=== PATIENT | male | born 1955 | race Caucasian/White ===

== ENCOUNTER 2018-06-19 18:10 | Inpatient (IN) | payer OTHER, MEDICARE ==
[2018-06-19] MEDS ORDERED: LIDOCAINE 1% INJ-PF (10 MG/ML) 30 ML SDV INJ ONE (18:33)
--- NOTE | 2018-06-19 18:33 | ER Document Report ---
ED Medical Screen (RME) - General Chief Complaint: Abscess Stated Complaint: POSSIBLE ABSCESS Time Seen by Provider: 06/19/18 18:29 Mode of Arrival: Ambulatory Information source: Patient Notes: 62-year-old male with type 2 diabetes, hypertension presents with complaint of right buttocks pain for 2 weeks. Patient was seen by his primary care physician who told him that the area needed to be drained. Patient has previous history of multiple abscesses. Denies any history of MRSA. I have greeted and performed a rapid initial assessment of this patient. A comprehensive ED assessment and evaluation of the patient, analysis of test results and completion of medical decision making process we will be contacted by additional ED providers. PHYSICAL EXAMINATION: GENERAL: Well-appearing, well-nourished and in no acute distress. HEAD: Atraumatic, normocephalic. EYES: Pupils equal round extraocular movements intact, conjunctiva are normal. LUNGS: No respiratory distress Musculoskeletal: Normal range of motion NEUROLOGICAL: Normal speech, normal gait. PSYCH: Normal mood, normal affect. TRAVEL OUTSIDE OF THE [place] IN LAST 30 DAYS: No - HPI Onset: Other Onset/Duration: Gradual, Persistent, Worse Quality of pain: Throbbing Severity: Moderate Associated Symptoms: Chills Exacerbated by: Movement Relieved by: Denies Similar symptoms previously: Yes Recently seen / treated by doctor: Yes - Related Data Smoking: Non-smoker Frequency of alcohol use: None Drug Abuse: None Allergies/Adverse Reactions: No Known Allergies Allergy (Unverified 06/19/18 18:12)
[2018-06-19] MEDS ORDERED: ONDANSETRON HCL INJ/PF 4 MG/2 ML SDV IV ONE (20:15)
[2018-06-19] MEDS ORDERED: HYDROMORPHONE HCL INJ/PF 2 MG/ML AMPULE IV ONE ×2 (20:15→21:53)
--- NOTE | 2018-06-19 20:19 | ER Document Report ---
ED Skin Rash/Insect Bite/Abscs <TERRELL,MANDA - Last Filed: 06/20/18 00:42> - General Mode of Arrival: Ambulatory Information source: Patient TRAVEL OUTSIDE OF THE [place] IN LAST 30 DAYS: No <MARY GOLDEN - Last Filed: 06/21/18 22:01> - General Chief Complaint: Abscess Stated Complaint: POSSIBLE ABSCESS Time Seen by Provider: 06/19/18 18:29 Notes: Last meal was about 5 PM, he ate half of a sub-sandwich. (TERRELLMANDA) Patient is a 62-year-old male with type 2 diabetes, hypertension, COPD, high cholesterol, CHF, pacemaker defibrillator and a history of MN (x3, 1 stent) and a recurrent abscesses presents to the emergency department complaining of an abscess on his right buttocks onset 2 weeks ago. Patient states that he went to [facility] 3 days ago and received a 10 day course of Clindamycin. Patient states that his PCP told him that he needed to have the abscess drained. Patient states he feels the Clindamycin has not helped his symptoms at all. Patient denies any fevers. (MARY GOLDEN) - Related Data Allergies/Adverse Reactions: No Known Allergies Allergy (Unverified 06/19/18 18:12) Past Medical History - General Information source: Patient - Social History Smoking Status: Current Every Day Smoker Frequency of alcohol use: None Drug Abuse: None Family History: Reviewed & Not Pertinent Patient has suicidal ideation: No Patient has homicidal ideation: No - Past Medical History Cardiac Medical History: Reports: Hx Congestive Heart Failure, Hx Heart Attack, Hx Hypercholesterolemia, Hx Hypertension Pulmonary Medical History: Reports: Hx COPD Endocrine Medical History: Reports: Hx Diabetes Mellitus Type 2 Past Surgical History: Reports: Hx Cardiac Catheterization, Hx Cardiac Surgery - pacemaker defibrillator <MARY GOLDEN - Last Filed: 06/21/18 22:01> Review of Systems - Review of Systems Constitutional: No symptoms reported EENT: No symptoms reported Cardiovascular: No symptoms reported Respiratory: No symptoms reported Gastrointestinal: No symptoms reported Genitourinary: No symptoms reported Male Genitourinary: No symptoms reported Musculoskeletal: See HPI Skin: See HPI Hematologic/Lymphatic: No symptoms reported Neurological/Psychological: No symptoms reported -: Yes All other systems reviewed and negative <MARY GOLDEN - Last Filed: 06/21/18 22:01> Physical Exam <MANDA TEJADA - Last Filed: 06/20/18 00:42> <MARY GOLDEN - Last Filed: 06/21/18 22:01> - Vital signs Vitals: Temp Pulse Resp BP Pulse Ox 98.7 F 103 H 20 136/102 H 94 06/19/18 18:16 06/19/18 18:16 06/19/18 18:16 06/19/18 18:16 06/19/18 18:16 - Notes Notes: GENERAL: Alert, interacts well. No acute distress. HEAD: Normocephalic, atraumatic. EYES: Pupils equal, round, and reactive to light. Extraocular movements intact. ENT: Oral mucosa moist, tongue midline. NECK: Full range of motion. Supple. Trachea midline. LUNGS: Coarse breath sounds, wheezing. No respiratory distress. HEART: Regular rate and rhythm. No murmurs, gallops, or rubs. ABDOMEN: Soft, obese, non-tender. Non-distended. Bowel sounds present in all 4 quadrants. EXTREMITIES: Moves all 4 extremities spontaneously. Edema in BLE, radial and dorsalis pedis pulses 2/4 bilaterally. No cyanosis. NEUROLOGICAL: Alert and oriented x3. Normal speech. PSYCH: Normal affect, normal mood. SKIN: Warm, dry, normal turgor. No rashes or lesions noted. GI/: Right buttocks contains a large area of erythema that is linear in shape which precedes to the perineum across the perineal body up to the base of scrotum, bulging, tender to palpation, no fluctuance. (MARY GOLDEN) Course - Laboratory Result Diagrams: 06/19/18 20:34 06/19/18 23:46 - Diagnostic Test Radiology reviewed: Reports reviewed - Chest x-ray shows mild atelectasis in the right base, pacemaker, nothing acute. Ultrasound showed inflammation, cellulitis, swelling, probable fluid collection. - EKG Interpretation by Dc EKG shows normal: Sinus rhythm, [place], Intervals, ST-T Waves. abnormal: QRS Complexes - Old inferior infarct and old lateral infarct Rate: Normal - 85 Rhythm: NSR [place]/QRS: RBBB - Atypical right bundle branch block, IVCD When compared to previous EKG there are: Previous EKG unavailable - Consults Dr. Vicente Time consulted: 23:00 Consulted provider: will come to ER <MANDA TEJADA - Last Filed: 06/20/18 00:42> - Laboratory Result Diagrams: 06/21/18 04:10 06/21/18 04:10 <MARY GOLDEN - Last Filed: 06/21/18 22:01> - Vital Signs Vital signs: Temp Pulse Resp BP Pulse Ox 98.9 F 83 18 125/65 97 06/21/18 20:28 06/21/18 20:28 06/21/18 20:28 06/21/18 20:28 06/21/18 20:28 - Laboratory Laboratory results interpreted by me: 06/19/18 06/19/18 06/19/18 20:34 20:34 23:30 WBC 19.5 H RBC 3.89 L Hgb 10.7 L Hct 32.8 L Seg Neuts % (Manual) 87 H Lymphocytes % (Manual) 8 L Abs Neuts (Manual) 17.0 H Sodium 135.0 L Potassium 5.7 H BUN 51 H Creatinine 1.92 H Est GFR ( Amer) 43 L Est GFR (Non-Af Amer) 36 L Glucose 313 H POC Glucose Direct Bilirubin 0.5 H Albumin 3.0 L Urine Protein 100 H Urine Urobilinogen 2.0 H Urine Ascorbic Acid 20 H 06/19/18 06/20/18 23:46 00:15 WBC RBC Hgb Hct Seg Neuts % (Manual) Lymphocytes % (Manual) Abs Neuts (Manual) Sodium Potassium 5.5 H BUN 51 H Creatinine 1.92 H Est GFR ( Amer) 43 L Est GFR (Non-Af Amer) 36 L Glucose 282 H POC Glucose 285 H Direct Bilirubin Albumin Urine Protein Urine Urobilinogen Urine Ascorbic Acid Critical Care Note - Critical Care Note Total time excluding time spent on procedures (mins): 45 <MANDA TEJADA - Last Filed: 06/20/18 00:42> Discharge - Discharge Admitting Provider: Surgicalist Unit Admitted: Telemetry <MANDA TEJADA - Last Filed: 06/20/18 00:42> <MARY GOLDEN - Last Filed: 06/21/18 22:01> - Discharge Clinical Impression: Perineal abscess, Dehydration, Hyperkalemia Leukocytosis Qualifiers: Leukocytosis type: unspecified Qualified Code(s): D72.829 - Elevated white blood cell count, unspecified Hyperglycemia due to type 2 diabetes mellitus Qualifiers: Diabetes mellitus group home insulin use: with exterminator helper use Qualified Code(s): E11.65 - Type 2 diabetes mellitus with hyperglycemia Condition: Stable Disposition: ADMITTED INPATIENT Scribe Attestation: 06/19/18 22:19 I personally performed the services described in the documentation, reviewed and edited the documentation which was dictated to the scribe in my presence, and it accurately records my words and actions. (MANDA TEJADA) Scribe Documentation - Scribe Written by Scribe:: Mary Golden, 06/19/2018, 20:28. acting as scribe for :: Terrell <MARY OGLDEN - Last Filed: 06/21/18 22:01>
[2018-06-19 20:47] LABS: HEMATOCRIT 32.8 % (37.9-51.0); HEMOGLOBIN 10.7 g/dL (13.5-17.0); MEAN CORPUSCULAR HEMOGLOBIN 27.6 pg (27.0-33.4); MEAN CORPUSCULAR HGB CONC 32.7 g/dL (32.0-36.0); MEAN CORPUSCULAR VOLUME 84 fl (80-97); PLATELET COUNT 267 10^3/uL (150-450); RED BLOOD COUNT 3.89 10^6/uL (4.35-5.55); RED CELL DISTRIBUTION WIDTH 13.5 % (11.5-14.0); WHITE BLOOD COUNT 19.5 10^3/uL (4.0-10.5)
[2018-06-19 21:14] LABS: ABSOLUTE LYMPHOCYTES# (MANUAL) 1.6 10^3/uL (0.5-4.7); ABSOLUTE MONOCYTES # (MANUAL) 0.8 10^3/uL (0.1-1.4); BASOPHILS % (MANUAL) 0 % (0-2); EOSINOPHILS % (MANUAL) 1 % (0-6); LYMPHOCYTES % (MANUAL) 8 % (13-45); MONOCYTES % (MANUAL) 4 % (3-13); SEGMENTED NEUTROPHILS % (MAN) 87 % (42-78); TOTAL CELLS COUNTED 100
[2018-06-19 21:15] LABS: PLATELET COMMENT ADEQUATE; RBC MORPHOLOGY COMMENT NORMO-CYTIC/CHROMIC
[2018-06-19 21:17] LABS: ALANINE AMINOTRANSFERASE 21 U/L (21-72); ALKALINE PHOSPHATASE 84 U/L (38-126); ANION GAP 10 (5-19); ASPARTATE AMINO TRANSFERASE 22 U/L (17-59); BILIRUBIN,DIRECT 0.5 mg/dL (0.0-0.4); BILIRUBIN,TOTAL 0.5 mg/dL (0.2-1.3); BLOOD UREA NITROGEN 51 mg/dL (7-20); CALCIUM 8.7 mg/dL (8.4-10.2); CARBON DIOXIDE 25 mmol/L (22-30); CHLORIDE 100 mmol/L (98-107); GLUCOSE 313 mg/dL (75-110); POTASSIUM 5.7 mmol/L (3.6-5.0); TOTAL PROTEIN 6.6 g/dL (6.3-8.2)
[2018-06-19] MEDS ORDERED: VANCOMYCIN HCL INJ 1000 MG VIAL IV ONE (21:45)
--- NOTE | 2018-06-19 22:02 | RADIOLOGY REPORT (SQ) ---
US EXTREMITY MUSCULOSKELETAL LIMITED HISTORY: Evaluate for fluid collection in the right buttock. Pain. COMPARISON: None. TECHNIQUE: Kohler-scale and color Doppler images of the right buttock region were obtained. FINDINGS: Diffuse edema of the overlying right buttock region. There is suggestion of a complex fluid collection with mobile internal debris in this region. IMPRESSION: Diffuse edema of the right buttock region. Possible fluid collection with internal debris. Cross-sectional imaging is recommended to exclude abscess.
[2018-06-19] MEDS ORDERED: NORMAL SALINE 1000 ML 1,000 ML IV ONE (23:05)
[2018-06-19] MEDS ORDERED: INSULIN REG, HUMAN 100 UNIT/ML 3 ML VIAL (PYX) IV ONE (23:05)
--- NOTE | 2018-06-19 23:32 | RADIOLOGY REPORT (SQ) ---
XR CHEST 1 VIEW HISTORY: Preoperative. Chest pain. COMPARISON: None. FINDINGS/IMPRESSION: Left chest wall pacemaker in situ. Normal cardiomediastinal silhouette. Pulmonary vasculature is unremarkable. Mild atelectasis at the left lung base. No pleural effusion or pneumothorax is seen. No acute osseous findings.
--- NOTE | 2018-06-19 23:39 | PDOC H&P ---
History of Present Illness Admission Date/PCP: 06/19/18 Patient complains of: right gluteal pain History of Present Illness: MER ONEIL is a 62 year old male with IDDM, and multiple medical problems including COPD, CHF, pacemaker whio be a large area of induration and rednes with pain of the lateral aspect of the rigth gluteus x 2 weeks whixh a=has been getting more symptomatic. His WBC is 19K and an US of the right gluteus indicates a probable abscess. Past Medical History Cardiac Medical History: Reports: Congestive Heart Failure, Myocardial Infarction, Hyperlipidema, Hypertension Pulmonary Medical History: Reports: Chronic Obstructive Pulmonary Disease (COPD) Endocrine Medical History: Reports: Diabetes Mellitus Type 2 Past Surgical History Past Surgical History: Reports: Cardiac Catheterization Social History Smoking Status: Current Every Day Smoker Family History Parental Family History Reviewed: No Children Family History Reviewed: No Sibling(s) Family History Reviewed.: No Medication/Allergy Allergies/Adverse Reactions: No Known Allergies Allergy (Unverified 06/19/18 18:12) Physical Exam Vital Signs: Intake & Output 06/18/18 06/19/18 06/20/18 06:59 06:59 06:59 Weight 95.2 kg General appearance: PRESENT: no acute distress Eye exam: PRESENT: EOMI Mouth exam: PRESENT: neck supple Neck exam: PRESENT: full ROM Respiratory exam: PRESENT: clear to auscultation leslie Cardiovascular exam: PRESENT: RRR GI/Abdominal exam: PRESENT: soft Rectal exam: PRESENT: deferred Gentrourinary exam: PRESENT: other - large 15 cm area of indurations and redness of ther right lateral gluteus as per flud collection Extremities exam: PRESENT: full ROM Musculoskeletal exam: PRESENT: full ROM Results Laboratory Results: 06/19/18 20:34 06/19/18 20:34 06/19/18 06/19/18 20:34 20:34 WBC 19.5 H RBC 3.89 L Hgb 10.7 L Hct 32.8 L MCV 84 MCH 27.6 MCHC 32.7 RDW 13.5 Plt Count 267 Seg Neutrophils % Not Reportable Lymphocytes % Not Reportable Monocytes % Not Reportable Eosinophils % Not Reportable Basophils % Not Reportable Absolute Neutrophils Not Reportable Absolute Lymphocytes Not Reportable Absolute Monocytes Not Reportable Absolute Eosinophils Not Reportable Absolute Basophils Not Reportable Sodium 135.0 L Potassium 5.7 H Chloride 100 Carbon Dioxide 25 Anion Gap 10 BUN 51 H Creatinine 1.92 H Est GFR ( Amer) 43 L Est GFR (Non-Af Amer) 36 L Glucose 313 H Calcium 8.7 Total Bilirubin 0.5 AST 22 ALT 21 Alkaline Phosphatase 84 Total Protein 6.6 Albumin 3.0 L Impressions: Extremity Ultrasound 06/19/18 20:19 IMPRESSION: Diffuse edema of the right buttock region. Possible fluid collection with internal debris. Cross-sectional imaging is recommended to exclude abscess. Assessment & Plan - Diagnosis (1) Abscess, gluteal, right Is this a current diagnosis for this admission?: Yes - Plan Summary Plan Summary: A/ Right gluteal abscess x 2 weeks Acute Kidney failure (BUN/Creatinine 51/1.9) Leukocytosis (19K) Hyperkalemia 5.7 Hyperglycemia P/ Obtain CT scan pelvis to r/o additional abscess sites Consent for right gluteal abscess I&D in AM NPO IVF Antibiotics Zosyn Medicine on consult D/W Anesthesia: K should be < 5.1 for safe surgery I will consult Hospitalist for glucose, fluids, and K management
[2018-06-19 23:44] LABS: APPEARANCE,URINE SLIGHTLY-CLOUDY; BILIRUBIN,URINE NEGATIVE (NEGATIVE); COLOR,URINE YELLOW; GLUCOSE, URINE NEGATIVE (NEGATIVE); KETONES,URINE NEGATIVE (NEGATIVE); LEUKOCYTE ESTERASE,URINE NEGATIVE (NEGATIVE); NITRITE,URINE NEGATIVE (NEGATIVE); PROTEIN,URINE 100 mg/dL (NEGATIVE); URINE SPECIFIC GRAVITY 1.017
[2018-06-19] MEDS ORDERED: ONDANSETRON HCL INJ/PF 4 MG/2 ML SDV IV PRN (23:45)
[2018-06-20] MEDS ORDERED: NORMAL SALINE 1000 ML 1,000 ML IV ONE (00:02)
[2018-06-20] MEDS ORDERED: FAMOTIDINE INJ/PF 20 MG/2 ML SDV IV ONE (00:05)
[2018-06-20] MEDS ORDERED: DEXTROSE 40% GEL 15 GM TUBE PO PRN ×2 (00:09)
[2018-06-20] MEDS ORDERED: GLUCAGON,HUMAN RECOMB 1 MG INJ IM PRN (00:09)
[2018-06-20] MEDS ORDERED: DEXTROSE 50%-WATER 25 GM/50 ML DISP.SYRIN IV PRN ×2 (00:09)
[2018-06-20] MEDS ORDERED: IPRATROPIUM/ALBUTEROL 0.5-2.5 MG/3 ML AMPUL NEB PRN (00:10)
[2018-06-20] MEDS: MORPHINE SULFATE 10 MG/ML INJ IV PRN (00:22)
--- NOTE | 2018-06-20 00:35 | RADIOLOGY REPORT (SQ) ---
CT PELVIS WITHOUT IV CONTRAST HISTORY: Perineal abscess COMPARISON: None. TECHNIQUE: CT scan of the pelvis. This exam was performed according to our departmental dose-optimization program, which includes automated exposure control, adjustment of the mA and/or kV according to patient size and/or use of iterative reconstruction technique. FINDINGS: 4.6 x 3.0 x 4.5 cm focal region in the right perineal subcutaneous tissues. Diffuse surrounding subcutaneous stranding is present. Evaluation is limited without IV contrast. Copious stool throughout the colon and rectum. Small left fat-containing inguinal hernia. Vascular calcifications are present. Degenerative changes of the spine. IMPRESSION: Limited study without IV contrast. 4.6 cm focal area of soft tissue in the right perineal region, which is nonspecific but may represent a developing fluid collection or abscess. Surrounding inflammatory stranding is present. Consider contrast-enhanced imaging to evaluate for enhancement and potential fistulous connection.
[2018-06-20 00:40] LABS: ANION GAP 11 (5-19); BLOOD UREA NITROGEN 51 mg/dL (7-20); CALCIUM 8.6 mg/dL (8.4-10.2); CARBON DIOXIDE 24 mmol/L (22-30); CHLORIDE 103 mmol/L (98-107); GLUCOSE 282 mg/dL (75-110); POTASSIUM 5.5 mmol/L (3.6-5.0)
[2018-06-20] MEDS ORDERED: LACTULOSE SYRUP 20 GM/30 ML UDCUP PO ONE (00:45)
[2018-06-20] MEDS ORDERED: CALCIUM GLUCONATE 1,000 MG in DEXTROSE 5%-WATER 50 ML IV ONE (01:45)
[2018-06-20] MEDS ORDERED: CALCIUM GLUCONATE 1000 MG/10 ML INJ IV ONE (01:48)
[2018-06-20] MEDS: IPRATROPIUM/ALBUTEROL 0.5-2.5 MG/3 ML AMPUL NEB SCH ×4 (02:00→19:54)
[2018-06-20] MEDS ORDERED: METOPROLOL TARTRATE 50 MG TABLET PO ONE (03:15)
[2018-06-20] MEDS ORDERED: GABAPENTIN 400 MG CAPSULE PO ONE (03:15)
[2018-06-20 04:40] LABS: ABSOLUTE EOSINOPHILS # (AUTO) 0.3 10^3/uL (0.0-0.6); ABSOLUTE LYMPHOCYTES (AUTO) 1.6 10^3/uL (0.5-4.7); ABSOLUTE MONOCYTES (AUTO) 1.6 10^3/uL (0.1-1.4); ABSOLUTE NEUT (AUTO) 15.2 10^3/uL (1.7-8.2); BASOPHILS % (AUTO) 0.3 % (0-2); EOSINOPHILS % (AUTO) 1.5 % (0-6); HEMATOCRIT 32.3 % (37.9-51.0); HEMOGLOBIN 10.6 g/dL (13.5-17.0); LYMPHOCYTES % (AUTO) 8.4 % (13-45); MEAN CORPUSCULAR HEMOGLOBIN 27.5 pg (27.0-33.4); MEAN CORPUSCULAR HGB CONC 32.7 g/dL (32.0-36.0); MEAN CORPUSCULAR VOLUME 84 fl (80-97); MONOCYTES % (AUTO) 8.6 % (3-13); PLATELET COUNT 256 10^3/uL (150-450); RED BLOOD COUNT 3.84 10^6/uL (4.35-5.55); RED CELL DISTRIBUTION WIDTH 13.7 % (11.5-14.0); SEGMENTED NEUTROPHILS % (AUTO) 81.2 % (42-78); TOTAL CELLS COUNTED % (AUTO) 100 %; WHITE BLOOD COUNT 18.7 10^3/uL (4.0-10.5)
--- NOTE | 2018-06-20 04:55 | PDOC H&P ---
History of Present Illness Admission Date/PCP: 06/20/18 00:50 KEVIN MCDOWELL MD Patient complains of: Perineal abscess History of Present Illness: MER ONEIL is a 62 year old male with a complex past medical history including recurrent perineal abscess, insulin dependent diabetes, coronary artery disease, congestive heart failure with an ejection fraction of 30% and COPD. He presents 2 weeks after nonhealing abscess to the right buttock following 3 days of p.o. clindamycin. Additionally he is found to have hyperkalemia without peak T waves, acute renal failure and hyperglycemia He is referred to surgery for intervention, hospitalist consulted for medical management. . Past Medical History Cardiac Medical History: Reports: Congestive Heart Failure, Myocardial Infarction, Hyperlipidema, Hypertension Pulmonary Medical History: Reports: Chronic Obstructive Pulmonary Disease (COPD) Endocrine Medical History: Reports: Diabetes Mellitus Type 2 Psychiatric Medical History: Reports: Tobacco Dependency Denies: Alcohol Dependency Past Surgical History Past Surgical History: Reports: Cardiac Catheterization Social History Information Source: Patient, Emergency Med Personnel Smoking Status: Current Every Day Smoker Cigars Per Day: 4 Number of Years Smokin Last Time Smoked: 06/19/18 Frequency of Alcohol Use: None Hx Recreational Drug Use: No - Advance Directive Resuscitation Status: Full Code Family History Family History: None Parental Family History Reviewed: Yes Children Family History Reviewed: Yes Sibling(s) Family History Reviewed.: Yes Medication/Allergy Allergies/Adverse Reactions: No Known Allergies Allergy (Unverified 06/19/18 18:12) Review of Systems Constitutional: ABSENT: chills, fever(s), headache(s), weight gain, weight loss Eyes: ABSENT: visual disturbances Ears: ABSENT: hearing changes Cardiovascular: ABSENT: chest pain, dyspnea on exertion, edema, orthropnea, palpitations Respiratory: ABSENT: cough, hemoptysis Gastrointestinal: ABSENT: abdominal pain, constipation, diarrhea, hematemesis, hematochezia, nausea, vomiting Genitourinary: ABSENT: dysuria, hematuria Musculoskeletal: ABSENT: joint swelling Integumentary: ABSENT: rash, wounds Neurological: ABSENT: abnormal gait, abnormal speech, confusion, dizziness, focal weakness, syncope Psychiatric: ABSENT: anxiety, depression, homidical ideation, suicidal ideation Endocrine: ABSENT: cold intolerance, heat intolerance, polydipsia, polyuria Hematologic/Lymphatic: ABSENT: easy bleeding, easy bruising Physical Exam Vital Signs: Temp Pulse Resp BP Pulse Ox 98.3 F 82 18 124/72 93 06/20/18 02:35 06/20/18 02:35 06/20/18 02:35 06/20/18 02:35 06/20/18 02:35 Intake & Output 06/18/18 06/19/18 06/20/18 11:59 11:59 11:59 Intake Total 1060 Balance 1060 Weight 97.4 kg General appearance: PRESENT: cooperative, mild distress, well-developed, well- nourished. ABSENT: disheveled Head exam: PRESENT: atraumatic, normocephalic Eye exam: PRESENT: conjunctiva pink, EOMI, PERRLA. ABSENT: scleral icterus Ear exam: PRESENT: normal external ear exam Mouth exam: PRESENT: moist, tongue midline Neck exam: ABSENT: carotid bruit, JVD, lymphadenopathy, thyromegaly Respiratory exam: PRESENT: clear to auscultation leslie. ABSENT: rales, rhonchi, wheezes Cardiovascular exam: PRESENT: RRR, systolic murmur. ABSENT: diastolic murmur, rubs Pulses: PRESENT: normal dorsalis pedis pul Vascular exam: PRESENT: normal capillary refill GI/Abdominal exam: PRESENT: normal bowel sounds, soft. ABSENT: distended, guarding, mass, organolmegaly, rebound, tenderness Rectal exam: PRESENT: deferred Extremities exam: PRESENT: full ROM. ABSENT: calf tenderness, clubbing, pedal edema Neurological exam: PRESENT: alert, awake, oriented to person, oriented to place , oriented to time, oriented to situation, CN II-XII grossly intact. ABSENT: motor sensory deficit Psychiatric exam: PRESENT: appropriate affect, normal mood. ABSENT: homicidal ideation, suicidal ideation Skin exam: PRESENT: dry, intact, warm. ABSENT: cyanosis, rash Results Laboratory Results: 06/20/18 03:32 06/20/18 03:32 WBC 18.7 H RBC 3.84 L Hgb 10.6 L Hct 32.3 L MCV 84 MCH 27.5 MCHC 32.7 RDW 13.7 Plt Count 256 Seg Neutrophils % 81.2 H Lymphocytes % 8.4 L Monocytes % 8.6 Eosinophils % 1.5 Basophils % 0.3 Absolute Neutrophils 15.2 H Absolute Lymphocytes 1.6 Absolute Monocytes 1.6 H Absolute Eosinophils 0.3 Absolute Basophils 0.0 Impressions: Extremity Ultrasound 06/19/18 20:19 IMPRESSION: Diffuse edema of the right buttock region. Possible fluid collection with internal debris. Cross-sectional imaging is recommended to exclude abscess. Chest X-Ray 06/19/18 23:15 FINDINGS/IMPRESSION: Left chest wall pacemaker in situ. Normal cardiomediastinal silhouette. Pulmonary vasculature is unremarkable. Mild atelectasis at the left lung base. No pleural effusion or pneumothorax is seen. No acute osseous findings. Pelvis CT 06/19/18 23:26 IMPRESSION: Limited study without IV contrast. 4.6 cm focal area of soft tissue in the right perineal region, which is nonspecific but may represent a developing fluid collection or abscess. Surrounding inflammatory stranding is present. Consider contrast-enhanced imaging to evaluate for enhancement and potential fistulous connection. Assessment & Plan - Diagnosis (1) Acute renal failure Is this a current diagnosis for this admission?: Yes Plan: Gentle IV fluid hydration may tolerate 2 L, avoid excessive fluid given ejection fraction of 30%. Avoid nephrotoxic meds and doses, follow-up chemistry (2) Coronary artery disease Is this a current diagnosis for this admission?: Yes Plan: Resume outpatient metoprolol (3) Hyperglycemia due to type 2 diabetes mellitus Qualifiers: Diabetes mellitus detention insulin use: with detention use Qualified Code( s): E11.65 - Type 2 diabetes mellitus with hyperglycemia; Z79.4 - terminal clerk ( current) use of insulin; Z79.4 - jail (current) use of insulin; Z79.4 - terminal clerk (current) use of insulin; Z79.4 - terminal clerk (current) use of insulin Is this a current diagnosis for this admission?: Yes Plan: Hold metformin, regular insulin IV now, Humalog sliding scale every 6 hours while n.p.o. (4) Hyperkalemia Is this a current diagnosis for this admission?: Yes Plan: No peak T waves, albuterol, lactulose, calcium gluconate, gentle hydration, follow-up chemistry. (5) Perineal abscess Is this a current diagnosis for this admission?: Yes Plan: High risk for complications given history, continue outpatient Lopressor, aggressive management of hyperkalemia otherwise defer to surgery - Time Time Spent: 50 to 70 Minutes
[2018-06-20 04:59] LABS: ANION GAP 10 (5-19); BLOOD UREA NITROGEN 47 mg/dL (7-20); CALCIUM 8.5 mg/dL (8.4-10.2); CARBON DIOXIDE 25 mmol/L (22-30); CHLORIDE 102 mmol/L (98-107); GLUCOSE 242 mg/dL (75-110); POTASSIUM 4.7 mmol/L (3.6-5.0); SODIUM 137.1 mmol/L (137-145)
[2018-06-20] MEDS ORDERED: ONDANSETRON HCL INJ/PF 4 MG/2 ML SDV ONE (05:15)
[2018-06-20] MEDS ORDERED: PROPOFOL INJ 200 MG/20 ML VIAL IV ONE (05:15)
[2018-06-20] MEDS ORDERED: MIDAZOLAM 2 MG/2 ML INJ ONE (05:15)
[2018-06-20] MEDS ORDERED: BUPIVACAINE HCL/DEX-WATER/PF 15 MG/2 ML AMPULE ONE (05:16)
[2018-06-20] MEDS ORDERED: PROMETHAZINE HCL INJ 25 MG/1 ML VIAL IV PRN (05:39)
[2018-06-20] MEDS ORDERED: FENTANYL CITRATE INJ/PF 100 MCG/2 ML AMPUL IV PRN ×3 (05:39)
[2018-06-20] MEDS ORDERED: DIPHENHYDRAMINE HCL 50 MG/ML VIAL IV PRN (05:39)
[2018-06-20] MEDS ORDERED: MEPERIDINE HCL/PF INJ 25 MG/1 ML DISP.SYRIN IV PRN (05:39)
--- NOTE | 2018-06-20 06:17 | Operative Report ---
Nonrecallable Operative Report DATE OF SURGERY: 06/20/18 PREOPERATIVE DIAGNOSIS: right gluteal and right perineal abscess POSTOPERATIVE DIAGNOSIS: same OPERATION: I&D of right gluteal and perineal abscess SURGEON: EVANS MOSLEY ANESTHESIA: Spinal TISSUE REMOVED OR ALTERED: n/a COMPLICATIONS: none ESTIMATED BLOOD LOSS: 25 mL INTRAOPERATIVE FINDINGS: large subcutaneous abscess extending from the lower half of the right gluteus to the right perineum
[2018-06-20] MEDS ORDERED: PIPERACILLIN/TAZOBACTAM 2.25 GM VIAL IV ONE (06:18)
[2018-06-20] MEDS ORDERED: PIPERACILLIN/TAZOBACTAM 2.25 GM VIAL IV PRN (06:25)
[2018-06-20] MEDS ORDERED: PIPERACILLIN SODIUM/TAZOBACTAM 2.25 GM in NORMAL SALINE 50 ML IV ONE (06:30)
--- NOTE | 2018-06-20 06:41 | OPERATIVE REPORT E ---
Operative Report NAME: MER ONEIL : 1955 AGE: 62Y DATE OF SURGERY: 06/20/18 ROOM: 413 PREOPERATIVE DIAGNOSIS: RIGHT GLUTEAL/PERINEAL ABSCESS. POSTOPERATIVE DIAGNOSIS: RIGHT GLUTEAL/PERINEAL ABSCESS. OPERATION: Incision and drainage of right gluteal/perineal abscess. SURGEON: EVANS MOSLEY M.D. [employer] OPERATOR: None. ANESTHESIA: Spinal, provided by anesthesiologist. BLEEDIN mL of blood. COMPLICATIONS: None. FLUIDS: 150 mL DRAINS: Three 1/4-inch Bonny drains. URINE OUTPUT: Monitored. INDICATION AND FINDINGS: This is a 62-year-old male, insulin-dependent diabetic, who came to the emergency room yesterday with a complaint of swelling, pain, redness of the right gluteal area extending from the mid to lower gluteal down to the right anterior perineum, approaching the base of the scrotum. The patient presented with a white blood cell count of 19,000, and a decision was made to take him to surgery to undergo incision and drainage of the abscess. Procedure explained. Risks and complications explained to the patient. He understands and decides to proceed. DESCRIPTION OF PROCEDURE: It was done in the operating room. The patient was placed in a lithotomy position. The perineum and genitalia were prepped and draped in usual fashion. The area of maximum induration and redness was approached with Bovie and a longitudinal incision was made with pus obtained. This was sent for aerobic and anaerobic culture and Gram stain. The incision was then extended proximally and distally. Two additional counterincisions were made proximally toward the thigh and additional pus was noted. The finger was then inserted and loose subcutaneous tissue was opened so to make a single cavity. In addition, a secondary counterincision was made more distally toward the hip joint and a Bonny drain was inserted through the main incision and 2 *------* incision, for a total of three 1/4-inch Bonny drains, which were tied to themselves. The area was irrigated with normal saline until clear, packed with iodine-soaked Matias, 4 x 4's, ABDs, tape were applied. The patient was transferred to the recovery room in satisfactory condition. DICTATING PHYSICIAN: EVANS MOSLEY M.D. [id number] PHY#: [id number] ID: [id number] JOB#: [id number] ACCT: [id number] cc:EVANS MOSLEY M.D. >
--- NOTE | 2018-06-20 09:47 | PDOC PROGRESS REPORT ---
Subjective Progress Note for:: 06/20/18 Subjective:: Feels well. Still does not have complete sensation in his legs yet. Reason For Visit: RIGHT GLUTEAL ABSCESS Physical Exam Vital Signs: Temp Pulse Resp BP Pulse Ox 99.1 F 67 16 112/64 92 06/20/18 09:20 06/20/18 09:20 06/20/18 09:20 06/20/18 09:20 06/20/18 09:20 Intake & Output 06/19/18 06/20/18 06/21/18 06:59 06:59 06:59 Intake Total 2210 50 Output Total 925 500 Balance 1285 -450 Weight 97.4 kg General appearance: PRESENT: no acute distress, cooperative Respiratory exam: PRESENT: clear to auscultation leslie Cardiovascular exam: PRESENT: RRR Rectal exam: PRESENT: other - Buttocks wound with [place] drain in packings in place. Clean. Patient with surrounding erythema. No blistering. Results Laboratory Results: 06/20/18 03:32 06/20/18 03:32 06/20/18 06/20/18 03:32 03:32 WBC 18.7 H RBC 3.84 L Hgb 10.6 L Hct 32.3 L MCV 84 MCH 27.5 MCHC 32.7 RDW 13.7 Plt Count 256 Seg Neutrophils % 81.2 H Lymphocytes % 8.4 L Monocytes % 8.6 Eosinophils % 1.5 Basophils % 0.3 Absolute Neutrophils 15.2 H Absolute Lymphocytes 1.6 Absolute Monocytes 1.6 H Absolute Eosinophils 0.3 Absolute Basophils 0.0 Sodium 137.1 Potassium 4.7 Chloride 102 Carbon Dioxide 25 Anion Gap 10 BUN 47 H Creatinine 1.75 H Est GFR ( Amer) 48 L Est GFR (Non-Af Amer) 40 L Glucose 242 H Calcium 8.5 Impressions: Extremity Ultrasound 06/19/18 20:19 IMPRESSION: Diffuse edema of the right buttock region. Possible fluid collection with internal debris. Cross-sectional imaging is recommended to exclude abscess. Chest X-Ray 06/19/18 23:15 FINDINGS/IMPRESSION: Left chest wall pacemaker in situ. Normal cardiomediastinal silhouette. Pulmonary vasculature is unremarkable. Mild atelectasis at the left lung base. No pleural effusion or pneumothorax is seen. No acute osseous findings. Pelvis CT 06/19/18 23:26 IMPRESSION: Limited study without IV contrast. 4.6 cm focal area of soft tissue in the right perineal region, which is nonspecific but may represent a developing fluid collection or abscess. Surrounding inflammatory stranding is present. Consider contrast-enhanced imaging to evaluate for enhancement and potential fistulous connection. Assessment & Plan - Diagnosis (1) Abscess, gluteal, right Is this a current diagnosis for this admission?: Yes Plan: Status post debridement. Patient with a still significant erythema. Continue IV antibiotics. Will DC Card when he is ambulating well.
[2018-06-20] MEDS: CYCLOBENZAPRINE HCL 10 MG TABLET PO SCH (10:24)
[2018-06-20] MEDS: FUROSEMIDE 80 MG TABLET PO SCH (10:25)
[2018-06-20] MEDS: GABAPENTIN 400 MG CAPSULE PO SCH ×4 (10:25→21:59)
[2018-06-20] MEDS: METOPROLOL TARTRATE 50 MG TABLET PO SCH (10:25)
[2018-06-20] MEDS: PIPERACILLIN SODIUM/TAZOBACTAM 2.25 GM in NORMAL SALINE 50 ML IV SCH ×2 (12:42→18:03)
--- NOTE | 2018-06-20 14:38 | EKG REPORT ---
SEVERITY:- ABNORMAL ECG - SINUS RHYTHM IVCD, CONSIDER ATYPICAL RBBB LEFT ANTERIOR FASCICULAR BLOCK : Confirmed by: Minerva Flowers MD 20-Jun-2018 14:37:30
[2018-06-20] MEDS: INSULIN LISPRO 100 UNIT/ML 3 ML VIAL SUBCUT PRN ×2 (15:21→18:00)
[2018-06-20] MEDS: FAMOTIDINE INJ/PF 20 MG/2 ML SDV IV SCH ×2 (15:22→21:59)
[2018-06-20] MEDS ORDERED: INSULIN GLARGINE,HUM.REC.ANLOG 1,000 UNIT/10 ML UNIT SUBCUT SCH (22:00)
[2018-06-21] MEDS: PIPERACILLIN SODIUM/TAZOBACTAM 2.25 GM in NORMAL SALINE 50 ML IV SCH ×5 (00:15→23:00)
[2018-06-21] MEDS: IPRATROPIUM/ALBUTEROL 0.5-2.5 MG/3 ML AMPUL NEB SCH ×4 (01:17→19:54)
[2018-06-21 04:28] LABS: ABSOLUTE BASOPHILS # (AUTO) 0.1 10^3/uL (0.0-0.2); ABSOLUTE EOSINOPHILS # (AUTO) 0.4 10^3/uL (0.0-0.6); ABSOLUTE NEUT (AUTO) 12.3 10^3/uL (1.7-8.2); BASOPHILS % (AUTO) 0.4 % (0-2); EOSINOPHILS % (AUTO) 2.4 % (0-6); HEMATOCRIT 28.4 % (37.9-51.0); HEMOGLOBIN 9.5 g/dL (13.5-17.0); LYMPHOCYTES % (AUTO) 6.8 % (13-45); MEAN CORPUSCULAR HGB CONC 33.4 g/dL (32.0-36.0); MEAN CORPUSCULAR VOLUME 84 fl (80-97); MONOCYTES % (AUTO) 6.9 % (3-13); PLATELET COUNT 248 10^3/uL (150-450); RED BLOOD COUNT 3.39 10^6/uL (4.35-5.55); RED CELL DISTRIBUTION WIDTH 13.8 % (11.5-14.0); SEGMENTED NEUTROPHILS % (AUTO) 83.5 % (42-78); TOTAL CELLS COUNTED % (AUTO) 100 %; WHITE BLOOD COUNT 14.8 10^3/uL (4.0-10.5)
[2018-06-21 04:51] LABS: ANION GAP 10 (5-19); BLOOD UREA NITROGEN 48 mg/dL (7-20); CALCIUM 8.5 mg/dL (8.4-10.2); CARBON DIOXIDE 23 mmol/L (22-30); CHLORIDE 104 mmol/L (98-107); GLUCOSE 353 mg/dL (75-110); POTASSIUM 5.5 mmol/L (3.6-5.0); SODIUM 136.7 mmol/L (137-145)
[2018-06-21] MEDS: TRAMADOL HCL 50 MG TABLET PO PRN (06:08)
[2018-06-21] MEDS: METOPROLOL TARTRATE 50 MG TABLET PO SCH (09:37)
[2018-06-21] MEDS: GABAPENTIN 400 MG CAPSULE PO SCH ×4 (09:37→21:25)
[2018-06-21] MEDS: FUROSEMIDE 80 MG TABLET PO SCH (09:37)
[2018-06-21] MEDS: CYCLOBENZAPRINE HCL 10 MG TABLET PO SCH (09:38)
[2018-06-21] MEDS: FAMOTIDINE INJ/PF 20 MG/2 ML SDV IV SCH ×2 (09:38→21:25)
[2018-06-21] MEDS: INSULIN LISPRO 100 UNIT/ML 3 ML VIAL SUBCUT PRN (09:38)
--- NOTE | 2018-06-21 10:02 | PDOC PROGRESS REPORT ---
Subjective Progress Note for:: 06/21/18 Subjective:: Patient is status post I&D of gluteal abscess yesterday He is doing well His potassium still elevated at 5.5 His creatinine is elevated 1.98 Reason For Visit: RIGHT GLUTEAL ABSCESS Physical Exam Vital Signs: Temp Pulse Resp BP Pulse Ox 98.5 F 90 14 125/51 L 92 06/21/18 07:27 06/21/18 08:00 06/21/18 08:00 06/21/18 07:27 06/21/18 08:00 Intake & Output 06/20/18 06/21/18 06/22/18 06:59 06:59 06:59 Intake Total 2210 703 50 Output Total 925 1400 Balance 1285 -697 50 Weight 214 lb 11.684 oz 215 lb 13.321 oz General appearance: PRESENT: no acute distress, well-developed, well-nourished Head exam: PRESENT: atraumatic, normocephalic Eye exam: PRESENT: conjunctiva pink, EOMI, PERRLA. ABSENT: scleral icterus Ear exam: PRESENT: normal external ear exam Mouth exam: PRESENT: moist, tongue midline Neck exam: ABSENT: carotid bruit, JVD, lymphadenopathy, thyromegaly Respiratory exam: PRESENT: clear to auscultation leslie. ABSENT: rales, rhonchi, wheezes Cardiovascular exam: PRESENT: RRR, systolic murmur. ABSENT: rubs Pulses: PRESENT: normal dorsalis pedis pul Vascular exam: PRESENT: normal capillary refill GI/Abdominal exam: PRESENT: normal bowel sounds, soft. ABSENT: distended, guarding, mass, organolmegaly, rebound, tenderness Rectal exam: PRESENT: deferred Extremities exam: PRESENT: full ROM. ABSENT: calf tenderness, clubbing, pedal edema Neurological exam: PRESENT: alert, awake, oriented to person, oriented to place , oriented to time, oriented to situation, CN II-XII grossly intact. ABSENT: motor sensory deficit Psychiatric exam: PRESENT: appropriate affect, normal mood. ABSENT: homicidal ideation, suicidal ideation Results Laboratory Results: 06/21/18 04:10 06/21/18 04:10 06/21/18 06/21/18 04:10 04:10 WBC 14.8 H RBC 3.39 L Hgb 9.5 L Hct 28.4 L MCV 84 MCH 28.0 MCHC 33.4 RDW 13.8 Plt Count 248 Seg Neutrophils % 83.5 H Lymphocytes % 6.8 L Monocytes % 6.9 Eosinophils % 2.4 Basophils % 0.4 Absolute Neutrophils 12.3 H Absolute Lymphocytes 1.0 Absolute Monocytes 1.0 Absolute Eosinophils 0.4 Absolute Basophils 0.1 Sodium 136.7 L Potassium 5.5 H Chloride 104 Carbon Dioxide 23 Anion Gap 10 BUN 48 H Creatinine 1.98 H Est GFR ( Amer) 42 L Est GFR (Non-Af Amer) 34 L Glucose 353 H Calcium 8.5 Impressions: Extremity Ultrasound 06/19/18 20:19 IMPRESSION: Diffuse edema of the right buttock region. Possible fluid collection with internal debris. Cross-sectional imaging is recommended to exclude abscess. Chest X-Ray 06/19/18 23:15 FINDINGS/IMPRESSION: Left chest wall pacemaker in situ. Normal cardiomediastinal silhouette. Pulmonary vasculature is unremarkable. Mild atelectasis at the left lung base. No pleural effusion or pneumothorax is seen. No acute osseous findings. Pelvis CT 06/19/18 23:26 IMPRESSION: Limited study without IV contrast. 4.6 cm focal area of soft tissue in the right perineal region, which is nonspecific but may represent a developing fluid collection or abscess. Surrounding inflammatory stranding is present. Consider contrast-enhanced imaging to evaluate for enhancement and potential fistulous connection. Assessment & Plan - Diagnosis (1) Abscess, gluteal, right Is this a current diagnosis for this admission?: Yes Plan: Continue IV Zosyn Follow-up operative cultures (2) Acute renal failure Is this a current diagnosis for this admission?: Yes Plan: Hold Lasix Start IV fluids Monitor electrolytes and renal function (3) Coronary artery disease Is this a current diagnosis for this admission?: Yes Plan: Continue current medications Denies chest pain or shortness of breath (4) Hyperglycemia due to type 2 diabetes mellitus Qualifiers: Diabetes mellitus intermediate project manager insulin use: with intermediate project manager use Qualified Code( s): E11.65 - Type 2 diabetes mellitus with hyperglycemia; Z79.4 - [facility] ( current) use of insulin; Z79.4 - [employer] (current) use of insulin; Z79.4 - [facility] (current) use of insulin; Z79.4 - [facility] (current) use of insulin Is this a current diagnosis for this admission?: Yes Plan: Continue to hold metformin Continue current insulin regimen (5) Hyperkalemia Is this a current diagnosis for this admission?: Yes Plan: Check EKG Give IV calcium gluconate IV insulin and 1/2 amp of D50 since he is hyperglycemic (6) Leukocytosis Qualifiers: Leukocytosis type: unspecified Qualified Code(s): D72.829 - Elevated white blood cell count, unspecified Is this a current diagnosis for this admission?: Yes Plan: Due to infection, currently improving
[2018-06-21] MEDS ORDERED: INSULIN REG, HUMAN 100 UNIT/ML 3 ML VIAL (PYX) IV ONE (10:30)
[2018-06-21] MEDS ORDERED: DEXTROSE 50%-WATER 25 GM/50 ML DISP.SYRIN IV ONE (10:30)
[2018-06-21] MEDS ORDERED: CALCIUM GLUCONATE 1000 MG/10 ML INJ IV ONE (10:30)
--- NOTE | 2018-06-21 18:10 | PDOC PROGRESS REPORT ---
Subjective Progress Note for:: 06/21/18 Subjective:: No complaints Reason For Visit: RIGHT GLUTEAL ABSCESS Physical Exam Vital Signs: Temp Pulse Resp BP Pulse Ox 98.6 F 71 18 118/61 92 06/21/18 11:17 06/21/18 14:00 06/21/18 13:47 06/21/18 11:17 06/21/18 13:47 Intake & Output 06/20/18 06/21/18 06/22/18 06:59 06:59 06:59 Intake Total 2210 703 1007 Output Total 925 1400 850 Balance 1285 -697 157 Weight 97.4 kg 97.9 kg General appearance: PRESENT: no acute distress - Packing changed by nursing staff today Results Laboratory Results: 06/21/18 04:10 06/21/18 04:10 06/21/18 06/21/18 04:10 04:10 WBC 14.8 H RBC 3.39 L Hgb 9.5 L Hct 28.4 L MCV 84 MCH 28.0 MCHC 33.4 RDW 13.8 Plt Count 248 Seg Neutrophils % 83.5 H Lymphocytes % 6.8 L Monocytes % 6.9 Eosinophils % 2.4 Basophils % 0.4 Absolute Neutrophils 12.3 H Absolute Lymphocytes 1.0 Absolute Monocytes 1.0 Absolute Eosinophils 0.4 Absolute Basophils 0.1 Sodium 136.7 L Potassium 5.5 H Chloride 104 Carbon Dioxide 23 Anion Gap 10 BUN 48 H Creatinine 1.98 H Est GFR ( Amer) 42 L Est GFR (Non-Af Amer) 34 L Glucose 353 H Calcium 8.5 Impressions: Extremity Ultrasound 06/19/18 20:19 IMPRESSION: Diffuse edema of the right buttock region. Possible fluid collection with internal debris. Cross-sectional imaging is recommended to exclude abscess. Chest X-Ray 06/19/18 23:15 FINDINGS/IMPRESSION: Left chest wall pacemaker in situ. Normal cardiomediastinal silhouette. Pulmonary vasculature is unremarkable. Mild atelectasis at the left lung base. No pleural effusion or pneumothorax is seen. No acute osseous findings. Pelvis CT 06/19/18 23:26 IMPRESSION: Limited study without IV contrast. 4.6 cm focal area of soft tissue in the right perineal region, which is nonspecific but may represent a developing fluid collection or abscess. Surrounding inflammatory stranding is present. Consider contrast-enhanced imaging to evaluate for enhancement and potential fistulous connection. Assessment & Plan - Diagnosis (1) Abscess, gluteal, right Is this a current diagnosis for this admission?: Yes Plan: Impression: Patient 1/2-day status post drainage right gluteal abscess with tracking and counterincision with [place] drains regular recommendations: 1. Patient into the shower and change packing today 2. Anticipate discharge patient tomorrow with assistance with local wound 3. Continue Zosyn today.
--- NOTE | 2018-06-21 20:51 | EKG REPORT ---
SEVERITY:- ABNORMAL ECG - SINUS RHYTHM IVCD, CONSIDER ATYPICAL RBBB INFERIOR INFARCT, AGE INDETERMINATE CONSIDER ANTERIOR INFARCT : Confirmed by: Minerva Flowers MD 21-Jun-2018 20:50:49
[2018-06-21] MEDS: INSULIN GLARGINE,HUM.REC.ANLOG 1,000 UNIT/10 ML UNIT SUBCUT SCH (22:00)
[2018-06-22] MEDS: IPRATROPIUM/ALBUTEROL 0.5-2.5 MG/3 ML AMPUL NEB SCH ×4 (02:08→20:41)
[2018-06-22 05:49] LABS: HEMATOCRIT 30.3 % (37.9-51.0); HEMOGLOBIN 10.1 g/dL (13.5-17.0); MEAN CORPUSCULAR HEMOGLOBIN 27.8 pg (27.0-33.4); MEAN CORPUSCULAR HGB CONC 33.3 g/dL (32.0-36.0); MEAN CORPUSCULAR VOLUME 84 fl (80-97); PLATELET COUNT 270 10^3/uL (150-450); RED BLOOD COUNT 3.62 10^6/uL (4.35-5.55); RED CELL DISTRIBUTION WIDTH 13.5 % (11.5-14.0); WHITE BLOOD COUNT 14.4 10^3/uL (4.0-10.5)
[2018-06-22 06:06] LABS: ANION GAP 10 (5-19); BLOOD UREA NITROGEN 42 mg/dL (7-20); CALCIUM 8.9 mg/dL (8.4-10.2); CARBON DIOXIDE 24 mmol/L (22-30); CHLORIDE 105 mmol/L (98-107); GLUCOSE 146 mg/dL (75-110); POTASSIUM 4.8 mmol/L (3.6-5.0)
[2018-06-22] MEDS: PIPERACILLIN SODIUM/TAZOBACTAM 2.25 GM in NORMAL SALINE 50 ML IV SCH ×4 (06:06→23:31)
[2018-06-22 06:25] LABS: ABSOLUTE MONOCYTES # (MANUAL) 0.7 10^3/uL (0.1-1.4); ABSOLUTE NEUTROPHILS# (MANUAL) 12.2 10^3/uL (1.7-8.2); BAND NEUTROPHILS % (MANUAL) 1 % (3-5); BASOPHILS % (MANUAL) 1 % (0-2); EOSINOPHILS % (MANUAL) 2 % (0-6); LYMPHOCYTES % (MANUAL) 7 % (13-45); MONOCYTES % (MANUAL) 5 % (3-13); POLYCHROMASIA SLIGHT; SEGMENTED NEUTROPHILS % (MAN) 84 % (42-78); TOTAL CELLS COUNTED 100; TOXIC GRANULATION 1+
[2018-06-22 06:26] LABS: ANISOCYTOSIS SLIGHT; PLATELET COMMENT ADEQUATE; PLATELET LARGE PRESENT; SCHISTOCYTES SLIGHT
[2018-06-22] MEDS: NORMAL SALINE 1000 ML 1,000 ML IV PRN ×2 (07:40→18:09)
[2018-06-22] MEDS: CYCLOBENZAPRINE HCL 10 MG TABLET PO SCH (10:47)
[2018-06-22] MEDS: GABAPENTIN 400 MG CAPSULE PO SCH ×4 (10:47→22:04)
[2018-06-22] MEDS: METOPROLOL TARTRATE 50 MG TABLET PO SCH (10:47)
[2018-06-22] MEDS: FAMOTIDINE INJ/PF 20 MG/2 ML SDV IV SCH ×2 (10:48→22:06)
[2018-06-22] MEDS ORDERED: VANCOMYCIN HCL INJ 1000 MG VIAL IV SCH (11:00)
--- NOTE | 2018-06-22 11:19 | PDOC PROGRESS REPORT ---
Subjective Progress Note for:: 06/22/18 Subjective:: Patient is status post I&D of gluteal abscess 06/20/2018 He is doing well His potassium improved His creatinine improved Operative culture positive gram-positive cocci in clusters Reason For Visit: RIGHT GLUTEAL ABSCESS Physical Exam Vital Signs: Temp Pulse Resp BP Pulse Ox 98.6 F 91 18 139/60 H 94 06/22/18 07:48 06/22/18 07:56 06/22/18 07:56 06/22/18 07:48 06/22/18 07:56 Intake & Output 06/21/18 06/22/18 06/23/18 06:59 06:59 06:59 Intake Total 703 1975 50 Output Total 1400 850 Balance -697 1125 50 Weight 215 lb 13.321 oz 218 lb 14.704 oz General appearance: PRESENT: no acute distress, well-developed, well-nourished Head exam: PRESENT: atraumatic, normocephalic Eye exam: PRESENT: conjunctiva pink, EOMI, PERRLA. ABSENT: scleral icterus Ear exam: PRESENT: normal external ear exam Mouth exam: PRESENT: moist, tongue midline Neck exam: ABSENT: carotid bruit, JVD, lymphadenopathy, thyromegaly Respiratory exam: PRESENT: clear to auscultation leslie. ABSENT: rales, rhonchi, wheezes Cardiovascular exam: PRESENT: RRR, systolic murmur. ABSENT: diastolic murmur, rubs Pulses: PRESENT: normal dorsalis pedis pul GI/Abdominal exam: PRESENT: normal bowel sounds, soft. ABSENT: distended, guarding, mass, organolmegaly, rebound, tenderness Rectal exam: PRESENT: deferred Neurological exam: PRESENT: alert, awake, oriented to person, oriented to place , oriented to time, oriented to situation, CN II-XII grossly intact. ABSENT: motor sensory deficit Psychiatric exam: PRESENT: appropriate affect, normal mood. ABSENT: homicidal ideation, suicidal ideation Skin exam: PRESENT: other - Gluteal abscess status post I&D with multiple [place] drains at multiple sites Results Laboratory Results: 06/22/18 04:03 06/22/18 04:03 06/22/18 06/22/18 04:03 04:03 WBC 14.4 H RBC 3.62 L Hgb 10.1 L Hct 30.3 L MCV 84 MCH 27.8 MCHC 33.3 RDW 13.5 Plt Count 270 Seg Neutrophils % Not Reportable Lymphocytes % Not Reportable Monocytes % Not Reportable Eosinophils % Not Reportable Basophils % Not Reportable Absolute Neutrophils Not Reportable Absolute Lymphocytes Not Reportable Absolute Monocytes Not Reportable Absolute Eosinophils Not Reportable Absolute Basophils Not Reportable Sodium 139.0 Potassium 4.8 Chloride 105 Carbon Dioxide 24 Anion Gap 10 BUN 42 H Creatinine 1.70 H Est GFR ( Amer) 50 L Est GFR (Non-Af Amer) 41 L Glucose 146 H Calcium 8.9 Impressions: Extremity Ultrasound 06/19/18 20:19 IMPRESSION: Diffuse edema of the right buttock region. Possible fluid collection with internal debris. Cross-sectional imaging is recommended to exclude abscess. Chest X-Ray 06/19/18 23:15 FINDINGS/IMPRESSION: Left chest wall pacemaker in situ. Normal cardiomediastinal silhouette. Pulmonary vasculature is unremarkable. Mild atelectasis at the left lung base. No pleural effusion or pneumothorax is seen. No acute osseous findings. Pelvis CT 06/19/18 23:26 IMPRESSION: Limited study without IV contrast. 4.6 cm focal area of soft tissue in the right perineal region, which is nonspecific but may represent a developing fluid collection or abscess. Surrounding inflammatory stranding is present. Consider contrast-enhanced imaging to evaluate for enhancement and potential fistulous connection. Assessment & Plan - Diagnosis (1) Abscess, gluteal, right Is this a current diagnosis for this admission?: Yes Plan: Continue IV Zosyn, and IV vancomycin Gram-positive cocci in clusters and operative culture Follow final report and sensitivity (2) Acute renal failure Is this a current diagnosis for this admission?: Yes Plan: Continue to hold Lasix Can stop IV fluids now since his renal function improved Monitor electrolytes and renal function (3) Coronary artery disease Is this a current diagnosis for this admission?: Yes Plan: Continue current medications No symptoms of chest pain or shortness of breath (4) Hyperglycemia due to type 2 diabetes mellitus Qualifiers: Diabetes mellitus group home insulin use: with stencil sprayer use Qualified Code( s): E11.65 - Type 2 diabetes mellitus with hyperglycemia; 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
[2018-06-22] MEDS: ASPIRIN 81 MG TABLET, ENT COATED PO SCH (14:36)
[2018-06-22] MEDS: VANCOMYCIN HCL 1,500 MG in DEXTROSE 5%-WATER 250 ML IV SCH (14:38)
[2018-06-22] MEDS: TRAMADOL HCL 50 MG TABLET PO PRN (14:38)
[2018-06-22] MEDS: MORPHINE SULFATE 10 MG/ML INJ IV PRN (20:08)
[2018-06-22] MEDS: INSULIN GLARGINE,HUM.REC.ANLOG 1,000 UNIT/10 ML UNIT SUBCUT SCH (22:06)
--- NOTE | 2018-06-22 22:20 | PDOC PROGRESS REPORT ---
Subjective Progress Note for:: 06/22/18 Subjective:: Pains right gluteal area Reason For Visit: RIGHT GLUTEAL ABSCESS Physical Exam Vital Signs: Temp Pulse Resp BP Pulse Ox 98.4 F 68 16 137/69 H 97 06/22/18 19:59 06/22/18 20:41 06/22/18 20:41 06/22/18 19:59 06/22/18 20:41 Intake & Output 06/21/18 06/22/18 06/23/18 06:59 06:59 06:59 Intake Total 703 1975 2983 Output Total 1400 850 300 Balance -697 1125 2683 Weight 97.9 kg 99.3 kg Exam: Packing removed. No drainage. Repacked Results Laboratory Results: 06/22/18 04:03 06/22/18 04:03 06/22/18 06/22/18 04:03 04:03 WBC 14.4 H RBC 3.62 L Hgb 10.1 L Hct 30.3 L MCV 84 MCH 27.8 MCHC 33.3 RDW 13.5 Plt Count 270 Seg Neutrophils % Not Reportable Lymphocytes % Not Reportable Monocytes % Not Reportable Eosinophils % Not Reportable Basophils % Not Reportable Absolute Neutrophils Not Reportable Absolute Lymphocytes Not Reportable Absolute Monocytes Not Reportable Absolute Eosinophils Not Reportable Absolute Basophils Not Reportable Sodium 139.0 Potassium 4.8 Chloride 105 Carbon Dioxide 24 Anion Gap 10 BUN 42 H Creatinine 1.70 H Est GFR ( Amer) 50 L Est GFR (Non-Af Amer) 41 L Glucose 146 H Calcium 8.9 Impressions: Extremity Ultrasound 06/19/18 20:19 IMPRESSION: Diffuse edema of the right buttock region. Possible fluid collection with internal debris. Cross-sectional imaging is recommended to exclude abscess. Chest X-Ray 06/19/18 23:15 FINDINGS/IMPRESSION: Left chest wall pacemaker in situ. Normal cardiomediastinal silhouette. Pulmonary vasculature is unremarkable. Mild atelectasis at the left lung base. No pleural effusion or pneumothorax is seen. No acute osseous findings. Pelvis CT 06/19/18 23:26 IMPRESSION: Limited study without IV contrast. 4.6 cm focal area of soft tissue in the right perineal region, which is nonspecific but may represent a developing fluid collection or abscess. Surrounding inflammatory stranding is present. Consider contrast-enhanced imaging to evaluate for enhancement and potential fistulous connection. Assessment & Plan - Time Time Spent with patient: 15-24 minutes - Inpatient Certification Medical Necessity: Need For IV Fluids, Need for IV Antibiotics - Plan Summary Plan Summary: Continue IV antibiotics next 24 hrs Re-evaluate in am for possible discharge
[2018-06-23] MEDS: IPRATROPIUM/ALBUTEROL 0.5-2.5 MG/3 ML AMPUL NEB SCH ×4 (02:20→19:54)
[2018-06-23 05:02] LABS: ABSOLUTE BASOPHILS # (AUTO) 0.2 10^3/uL (0.0-0.2); ABSOLUTE EOSINOPHILS # (AUTO) 0.6 10^3/uL (0.0-0.6); ABSOLUTE LYMPHOCYTES (AUTO) 1.2 10^3/uL (0.5-4.7); BASOPHILS % (AUTO) 1.2 % (0-2); EOSINOPHILS % (AUTO) 4.3 % (0-6); HEMOGLOBIN 10.2 g/dL (13.5-17.0); LYMPHOCYTES % (AUTO) 8.7 % (13-45); MEAN CORPUSCULAR HEMOGLOBIN 27.5 pg (27.0-33.4); MEAN CORPUSCULAR HGB CONC 33.1 g/dL (32.0-36.0); MEAN CORPUSCULAR VOLUME 83 fl (80-97); MONOCYTES % (AUTO) 6.8 % (3-13); PLATELET COUNT 268 10^3/uL (150-450); RED BLOOD COUNT 3.73 10^6/uL (4.35-5.55); RED CELL DISTRIBUTION WIDTH 13.8 % (11.5-14.0); TOTAL CELLS COUNTED % (AUTO) 100 %; WHITE BLOOD COUNT 13.9 10^3/uL (4.0-10.5)
[2018-06-23 05:30] LABS: ANION GAP 9 (5-19); BLOOD UREA NITROGEN 30 mg/dL (7-20); CALCIUM 8.9 mg/dL (8.4-10.2); CARBON DIOXIDE 23 mmol/L (22-30); CHLORIDE 107 mmol/L (98-107); GLUCOSE 138 mg/dL (75-110); SODIUM 138.6 mmol/L (137-145)
[2018-06-23] MEDS: PIPERACILLIN SODIUM/TAZOBACTAM 2.25 GM in NORMAL SALINE 50 ML IV SCH ×3 (06:54→17:40)
--- NOTE | 2018-06-23 08:47 | PDOC PROGRESS REPORT ---
Subjective Progress Note for:: 06/23/18 Subjective:: Patient is doing well Pain is controlled and is tolerating diet Renal function and potassium levels are stable so as glucose levels Operative culture positive for MSSA Reason For Visit: RIGHT GLUTEAL ABSCESS Physical Exam Vital Signs: Temp Pulse Resp BP Pulse Ox 98.3 F 84 20 139/78 H 94 06/23/18 08:32 06/23/18 08:32 06/23/18 08:32 06/23/18 08:32 06/23/18 08:32 Intake & Output 06/22/18 06/23/18 06/24/18 06:59 06:59 06:59 Intake Total 1975 4497 50 Output Total 850 300 Balance 1125 4197 50 Weight 218 lb 14.704 oz 216 lb 4.375 oz General appearance: PRESENT: no acute distress, cooperative, well-developed, well-nourished Head exam: PRESENT: atraumatic, normocephalic Eye exam: PRESENT: conjunctiva pink Respiratory exam: ABSENT: accessory muscle use Neurological exam: PRESENT: alert, awake, oriented to person, oriented to place , oriented to time, oriented to situation Psychiatric exam: PRESENT: appropriate affect. ABSENT: agitated, anxious Results Laboratory Results: 06/23/18 03:57 06/23/18 03:57 06/23/18 06/23/18 03:57 03:57 WBC 13.9 H RBC 3.73 L Hgb 10.2 L Hct 31.0 L MCV 83 MCH 27.5 MCHC 33.1 RDW 13.8 Plt Count 268 Seg Neutrophils % 79.0 H Lymphocytes % 8.7 L Monocytes % 6.8 Eosinophils % 4.3 Basophils % 1.2 Absolute Neutrophils 11.0 H Absolute Lymphocytes 1.2 Absolute Monocytes 1.0 Absolute Eosinophils 0.6 Absolute Basophils 0.2 Sodium 138.6 Potassium 5.0 Chloride 107 Carbon Dioxide 23 Anion Gap 9 BUN 30 H Creatinine 1.41 H Est GFR ( Amer) > 60 Est GFR (Non-Af Amer) 51 L Glucose 138 H Calcium 8.9 Impressions: Extremity Ultrasound 06/19/18 20:19 IMPRESSION: Diffuse edema of the right buttock region. Possible fluid collection with internal debris. Cross-sectional imaging is recommended to exclude abscess. Chest X-Ray 06/19/18 23:15 FINDINGS/IMPRESSION: Left chest wall pacemaker in situ. Normal cardiomediastinal silhouette. Pulmonary vasculature is unremarkable. Mild atelectasis at the left lung base. No pleural effusion or pneumothorax is seen. No acute osseous findings. Pelvis CT 06/19/18 23:26 IMPRESSION: Limited study without IV contrast. 4.6 cm focal area of soft tissue in the right perineal region, which is nonspecific but may represent a developing fluid collection or abscess. Surrounding inflammatory stranding is present. Consider contrast-enhanced imaging to evaluate for enhancement and potential fistulous connection. Assessment & Plan - Diagnosis (1) Abscess, gluteal, right Is this a current diagnosis for this admission?: Yes Plan: Operative culture positive for MSSA Can be discharged on oral antibiotic (2) Acute renal failure Is this a current diagnosis for this admission?: Yes Plan: Creatinine now is 1.41 Okay to resume Lasix (3) Coronary artery disease Is this a current diagnosis for this admission?: Yes Plan: Continue current medications No symptoms of chest pain or shortness of breath (4) Hyperglycemia due to type 2 diabetes mellitus Qualifiers: Diabetes mellitus residential insulin use: with residential use Qualified Code( s): E11.65 - Type 2 diabetes mellitus with hyperglycemia; 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; 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; Z79.4 - long-term (current) use of insulin; Z79.4 - long-term (current) use of insulin Is this a current diagnosis for this admission?: Yes Plan: Can resume metformin Continue current insulin management (5) Hyperkalemia Is this a current diagnosis for this admission?: Yes Plan: Resolved (6) Leukocytosis Qualifiers: Leukocytosis type: unspecified Qualified Code(s): D72.829 - Elevated white blood cell count, unspecified Is this a current diagnosis for this admission?: Yes Plan: Due to infection Improved - Plan Summary Plan Summary: Okay to discharge on oral antibiotic from my point of view Discussed with the patient
[2018-06-23] MEDS: FAMOTIDINE INJ/PF 20 MG/2 ML SDV IV SCH ×2 (09:57→21:34)
[2018-06-23] MEDS: CYCLOBENZAPRINE HCL 10 MG TABLET PO SCH (09:57)
[2018-06-23] MEDS: GABAPENTIN 400 MG CAPSULE PO SCH ×4 (09:57→21:34)
[2018-06-23] MEDS: METOPROLOL TARTRATE 50 MG TABLET PO SCH (09:57)
[2018-06-23] MEDS: ASPIRIN 81 MG TABLET, ENT COATED PO SCH (09:57)
[2018-06-23] MEDS: NORMAL SALINE 1000 ML 1,000 ML IV PRN (13:01)
[2018-06-23] MEDS: MORPHINE SULFATE 10 MG/ML INJ IV PRN (13:26)
[2018-06-23] MEDS: VANCOMYCIN HCL 1,500 MG in DEXTROSE 5%-WATER 250 ML IV SCH (14:15)
[2018-06-23] MEDS ORDERED: FUROSEMIDE INJ/PF 100 MG/10 ML SDV ONE (15:09)
--- NOTE | 2018-06-23 15:22 | PDOC PROGRESS REPORT ---
Subjective Progress Note for:: 06/23/18 Subjective:: Mild pains right gluteal area Reason For Visit: RIGHT GLUTEAL ABSCESS Physical Exam Vital Signs: Temp Pulse Resp BP Pulse Ox 97.6 F 71 18 130/73 H 99 06/23/18 12:00 06/23/18 15:06 06/23/18 15:06 06/23/18 12:00 06/23/18 15:06 Intake & Output 06/22/18 06/23/18 06/24/18 06:59 06:59 06:59 Intake Total 1975 4497 242 Output Total 850 300 Balance 1125 4197 242 Weight 99.3 kg 98.1 kg Exam: I&D sites relatively clean and dry. [place] drains in place. Some formed exudates sharply debrided Repacked with wet to dry saline gauze dressings Results Laboratory Results: 06/23/18 03:57 06/23/18 03:57 06/23/18 06/23/18 03:57 03:57 WBC 13.9 H RBC 3.73 L Hgb 10.2 L Hct 31.0 L MCV 83 MCH 27.5 MCHC 33.1 RDW 13.8 Plt Count 268 Seg Neutrophils % 79.0 H Lymphocytes % 8.7 L Monocytes % 6.8 Eosinophils % 4.3 Basophils % 1.2 Absolute Neutrophils 11.0 H Absolute Lymphocytes 1.2 Absolute Monocytes 1.0 Absolute Eosinophils 0.6 Absolute Basophils 0.2 Sodium 138.6 Potassium 5.0 Chloride 107 Carbon Dioxide 23 Anion Gap 9 BUN 30 H Creatinine 1.41 H Est GFR ( Amer) > 60 Est GFR (Non-Af Amer) 51 L Glucose 138 H Calcium 8.9 06/20/18 05:36 Buttocks - Abscess Gram Stain - Final 06/20/18 05:36 Buttocks - Abscess Wound Culture - Final Staphylococcus Aureus No Anaerobic Organisms Impressions: Extremity Ultrasound 06/19/18 20:19 IMPRESSION: Diffuse edema of the right buttock region. Possible fluid collection with internal debris. Cross-sectional imaging is recommended to exclude abscess. Chest X-Ray 06/19/18 23:15 FINDINGS/IMPRESSION: Left chest wall pacemaker in situ. Normal cardiomediastinal silhouette. Pulmonary vasculature is unremarkable. Mild atelectasis at the left lung base. No pleural effusion or pneumothorax is seen. No acute osseous findings. Pelvis CT 06/19/18 23:26 IMPRESSION: Limited study without IV contrast. 4.6 cm focal area of soft tissue in the right perineal region, which is nonspecific but may represent a developing fluid collection or abscess. Surrounding inflammatory stranding is present. Consider contrast-enhanced imaging to evaluate for enhancement and potential fistulous connection. Assessment & Plan - Time Time Spent with patient: 15-24 minutes - Inpatient Certification Medical Necessity: Need for IV Antibiotics, Risk of Complication if Not Cared For in Hospital - Plan Summary Plan Summary: Patient lives in [place] and would like to have wound care nurse for home visits. Will request Discharge planning nurse. Continue IV antibiotics Possible D/C of [place] drains tomorrow.
[2018-06-23] MEDS: INSULIN GLARGINE,HUM.REC.ANLOG 1,000 UNIT/10 ML UNIT SUBCUT SCH (21:33)
--- NOTE | 2018-06-23 21:36 | OPERATIVE REPORT E ---
Operative Report NAME: MER ONEIL : 1955 AGE: 62Y DATE OF SURGERY: 06/23/2018 ROOM: 413 PREOPERATIVE DIAGNOSES: 1. POST INCISION AND DRAINAGE OF RIGHT GLUTEAL ABSCESS. 2. SOME FORMED EXUDATES AROUND THE I AND D SITES. POSTOPERATIVE DIAGNOSES: 1. POST INCISION AND DRAINAGE OF RIGHT GLUTEAL ABSCESS. 2. SOME FORMED EXUDATES AROUND THE I AND D SITES. OPERATION: Sharp debridement of formed exudate on the deeper part of the I and D sites. SURGEON: JACK RICHMOND M.D. PROCEDURE: The patient was placed in the supine position with the right leg bent at the knee. The I and D sites were then exposed and they appear to be relatively dry. There are some areas of formed exudate on the deeper part of the I and D that were sharply debrided with the use of scissors. The I and D sites were then packed with wet to dry saline gauze dressings. The patient tolerated the procedure well. DICTATING PHYSICIAN: JACK RICHMOND M.D. [id number] PHY#: [id number] ID: [id number] JOB#: [id number] ACCT: [id number] cc:JACK RICHMOND M.D. >
[2018-06-24] MEDS: PIPERACILLIN SODIUM/TAZOBACTAM 2.25 GM in NORMAL SALINE 50 ML IV SCH ×2 (00:06→05:51)
[2018-06-24] MEDS: TRAMADOL HCL 50 MG TABLET PO PRN (00:09)
[2018-06-24] MEDS: IPRATROPIUM/ALBUTEROL 0.5-2.5 MG/3 ML AMPUL NEB SCH ×3 (02:35→14:32)
[2018-06-24 06:09] LABS: HEMOGLOBIN 9.9 g/dL (13.5-17.0); MEAN CORPUSCULAR HEMOGLOBIN 27.7 pg (27.0-33.4); MEAN CORPUSCULAR HGB CONC 33.2 g/dL (32.0-36.0); MEAN CORPUSCULAR VOLUME 84 fl (80-97); PLATELET COUNT 324 10^3/uL (150-450); RED BLOOD COUNT 3.59 10^6/uL (4.35-5.55); RED CELL DISTRIBUTION WIDTH 13.8 % (11.5-14.0); WHITE BLOOD COUNT 15.3 10^3/uL (4.0-10.5)
[2018-06-24 06:29] LABS: ABSOLUTE LYMPHOCYTES# (MANUAL) 0.3 10^3/uL (0.5-4.7); ABSOLUTE MONOCYTES # (MANUAL) 0.8 10^3/uL (0.1-1.4); ABSOLUTE NEUTROPHILS# (MANUAL) 14.2 10^3/uL (1.7-8.2); BAND NEUTROPHILS % (MANUAL) 1 % (3-5); BASOPHILS % (MANUAL) 0 % (0-2); EOSINOPHILS % (MANUAL) 0 % (0-6); LYMPHOCYTES % (MANUAL) 2 % (13-45); MONOCYTES % (MANUAL) 5 % (3-13); SEGMENTED NEUTROPHILS % (MAN) 92 % (42-78); TOTAL CELLS COUNTED 100
[2018-06-24 06:30] LABS: POLYCHROMASIA 1+
[2018-06-24 06:31] LABS: BURR CELLS 1+; PLATELET COMMENT ADEQUATE
[2018-06-24 06:34] LABS: ANION GAP 10 (5-19); BLOOD UREA NITROGEN 20 mg/dL (7-20); CARBON DIOXIDE 24 mmol/L (22-30); CHLORIDE 107 mmol/L (98-107); GLUCOSE 94 mg/dL (75-110); POTASSIUM 4.3 mmol/L (3.6-5.0)
--- NOTE | 2018-06-24 09:14 | PDOC PROGRESS REPORT ---
Subjective Progress Note for:: 06/24/18 Subjective:: Patient is improving His diabetes is better controlled Renal function and potassium levels are improved and stable Reason For Visit: RIGHT GLUTEAL ABSCESS Physical Exam Vital Signs: Temp Pulse Resp BP Pulse Ox 98.6 F 81 16 146/74 H 95 06/24/18 04:19 06/24/18 07:50 06/24/18 07:50 06/24/18 04:19 06/24/18 07:50 Intake & Output 06/23/18 06/24/18 06/25/18 06:59 06:59 06:59 Intake Total 4497 2328 Output Total 300 2000 Balance 4197 328 Weight 216 lb 4.375 oz 218 lb 4.122 oz General appearance: PRESENT: no acute distress, cooperative Head exam: PRESENT: atraumatic, normocephalic Eye exam: PRESENT: conjunctiva pink. ABSENT: conjunctival injection Ear exam: PRESENT: normal external ear exam Mouth exam: PRESENT: moist, tongue midline Respiratory exam: ABSENT: accessory muscle use Neurological exam: PRESENT: alert, awake, oriented to person, oriented to place , oriented to time, oriented to situation. ABSENT: aphasic Psychiatric exam: ABSENT: agitated, anxious Results Laboratory Results: 06/24/18 04:09 06/24/18 04:09 06/24/18 06/24/18 04:09 04:09 WBC 15.3 H RBC 3.59 L Hgb 9.9 L Hct 30.0 L MCV 84 MCH 27.7 MCHC 33.2 RDW 13.8 Plt Count 324 Seg Neutrophils % Not Reportable Lymphocytes % Not Reportable Monocytes % Not Reportable Eosinophils % Not Reportable Basophils % Not Reportable Absolute Neutrophils Not Reportable Absolute Lymphocytes Not Reportable Absolute Monocytes Not Reportable Absolute Eosinophils Not Reportable Absolute Basophils Not Reportable Sodium 141.0 Potassium 4.3 Chloride 107 Carbon Dioxide 24 Anion Gap 10 BUN 20 Creatinine 1.31 H Est GFR ( Amer) > 60 Est GFR (Non-Af Amer) 55 L Glucose 94 Calcium 9.0 06/20/18 05:36 Buttocks - Abscess Gram Stain - Final 06/20/18 05:36 Buttocks - Abscess Wound Culture - Final Staphylococcus Aureus No Anaerobic Organisms Impressions: Extremity Ultrasound 06/19/18 20:19 IMPRESSION: Diffuse edema of the right buttock region. Possible fluid collection with internal debris. Cross-sectional imaging is recommended to exclude abscess. Chest X-Ray 06/19/18 23:15 FINDINGS/IMPRESSION: Left chest wall pacemaker in situ. Normal cardiomediastinal silhouette. Pulmonary vasculature is unremarkable. Mild atelectasis at the left lung base. No pleural effusion or pneumothorax is seen. No acute osseous findings. Pelvis CT 06/19/18 23:26 IMPRESSION: Limited study without IV contrast. 4.6 cm focal area of soft tissue in the right perineal region, which is nonspecific but may represent a developing fluid collection or abscess. Surrounding inflammatory stranding is present. Consider contrast-enhanced imaging to evaluate for enhancement and potential fistulous connection. Assessment & Plan - Diagnosis (1) Abscess, gluteal, right Is this a current diagnosis for this admission?: Yes Plan: Operative culture positive for MSSA Okay for discharge on oral antibiotic (2) Acute renal failure Is this a current diagnosis for this admission?: Yes Plan: Creatinine improved and now 1.31 Restarted Lasix yesterday (3) Coronary artery disease Is this a current diagnosis for this admission?: Yes Plan: Continue current medications (4) Hyperglycemia due to type 2 diabetes mellitus Qualifiers: Diabetes mellitus technician terminal and repeater insulin use: with technician terminal and repeater use Qualified Code( s): E11.65 - Type 2 diabetes mellitus with hyperglycemia; Z79.4 - [facility] ( current) use of insulin; Z79.4 - [facility] (current) use of insulin; Z79.4 - technician terminal and repeater (current) use of insulin; Z79.4 - [facility] (current) use of insulin Is this a current diagnosis for this admission?: Yes Plan: Continue metformin Continue current insulin management (5) Hyperkalemia Is this a current diagnosis for this admission?: Yes Plan: Resolved (6) Leukocytosis Qualifiers: Leukocytosis type: unspecified Qualified Code(s): D72.829 - Elevated white blood cell count, unspecified Is this a current diagnosis for this admission?: Yes Plan: Due to infection - Plan Summary Plan Summary: Plans for discharge today to home with home care and wound care
--- NOTE | 2018-06-24 09:52 | DISCHARGE SUMMARY E ---
Discharge Summary NAME: MER ONEIL : 1955 AGE: 62Y ADMITTED: 06/20/2018 DISCHARGED: 06/24/2018 REASON FOR ADMISSION: Perineal and right ischial abscess. SUMMARY OF HOSPITALIZATION: The patient is a 62-year-old white male who presented to the emergency department complaining of right inner gluteal cleft and perineal drainage. He was found to have a soft tissue infection involving the base of scrotum and ischial region. He was admitted to the surgical service for definitive management. Please see his past medical and surgical history in his history and physical document. SUMMARY: The patient was taken to the operating room by Dr. Vicente on 06/20/2018 where he underwent incision, drainage, packing, and loop drain placement of multiple infected areas involving the right perineum, ischial area, and right gluteal region. The patient's cultures grew gram-positive organisms, non-MRSA. He was treated with intravenous antibiotics. Over the ensuing days, he was started on dressing changes and tolerated this well. By the fourth postoperative day, he was felt to receive maximum benefit from the hospitalization and was discharged home with the care of Home Health. FINAL DIAGNOSIS: Multiple soft tissue abscesses involving the right perineum, gluteal fold and ischium status post operative debridement. DISPOSITION: The patient was discharged home in the care of his family. Will follow up with [facility] in approximately 1 week, take p.o. Keflex t.i.d. x5 days; will take Tylenol and Motrin p.r.n. pain. DICTATING PHYSICIAN: CARLOS MAGAÑA M.D. [id number] PHY#: [id number] ID: [id number] JOB#: [id number] ACCT: [id number] cc:Anabela NEUMANN M.D. >
[2018-06-24] MEDS: ASPIRIN 81 MG TABLET, ENT COATED PO SCH (10:17)
[2018-06-24] MEDS: FUROSEMIDE 80 MG TABLET PO SCH (10:17)
[2018-06-24] MEDS: METOPROLOL TARTRATE 50 MG TABLET PO SCH (10:17)
[2018-06-24] MEDS: CYCLOBENZAPRINE HCL 10 MG TABLET PO SCH (10:18)
[2018-06-24] MEDS: FAMOTIDINE INJ/PF 20 MG/2 ML SDV IV SCH (10:18)
[2018-06-24] MEDS: GABAPENTIN 400 MG CAPSULE PO SCH (10:18)
[2018-06-24 12:47] VITALS: BP 132/76
== END 2018-06-24 14:47 | disposition home health service (06) | DRG 603 ==
LOC: ER 18:10 → EH 06-20 00:50 → 4N 06-20 02:20
PROVIDERS: ADMIT Surgery; ATTEND Surgery
PROC: 0J9900Z Drainage of Buttock Subcutaneous Tissue and Fascia with Drainage Device, Open Approach (ICD-10-PCS; principal; 2018-06-20 05:15)
PROC: 0HD8XZZ Extraction of Buttock Skin, External Approach (ICD-10-PCS; 2018-06-23)
DX: L02.31 Cutaneous abscess of buttock (principal); L02.215 Cutaneous abscess of perineum; N17.9 Acute kidney failure, unspecified; E11.65 Type 2 diabetes mellitus with hyperglycemia; E86.0 Dehydration; E87.5 Hyperkalemia; Z79.4 Long term (current) use of insulin; D72.829 Elevated white blood cell count, unspecified; B95.61 Methicillin susceptible Staphylococcus aureus infection as the cause of diseases classified elsewhere; F17.200 Nicotine dependence, unspecified, uncomplicated; I11.0 Hypertensive heart disease with heart failure; I50.9 Heart failure, unspecified; J44.9 Chronic obstructive pulmonary disease, unspecified; Z95.810 Presence of automatic (implantable) cardiac defibrillator; I25.2 Old myocardial infarction; Z95.5 Presence of coronary angioplasty implant and graft
CPT/HCPCS: 300; 36415; 71045; 72192; 76882; 80048; 80053; 81001; 82962; 85025; 87040; 87070; 87075; 87077; 87186; 87205; 93005; 93010; 94640; 94799; A6266; J0610; J1170; J1815; J1940; J2250; J2270; J2405; J2543; J2704; J3370; J3490; J7060; J7620; S0028